=== PATIENT | male | born 1985 | race African-American/Black ===

== ENCOUNTER 2021-10-30 13:53 | Emergency (ER) | payer SELFPAY ==
[~2021-10-30] VITALS: Ht 167.6 cm; Wt 54.4 kg
[2021-10-30 13:55] VITALS: BP 116/73
== END 2021-10-30 14:50 | disposition left against medical advice (07) ==
LOC: MED 13:53
DX: K92.1 Melena (principal); Z53.21 Procedure and treatment not carried out due to patient leaving prior to being seen by health care provider